=== PATIENT | male | born 1985 | race Caucasian/White ===

== ENCOUNTER 2016-05-11 08:56 | Emergency (ER) | payer SELFPAY ==
--- NOTE | 2016-05-18 13:52 | ER ---
ADMIT: 05/11/2016 RM/LOC: ER [facility] MR#: [id number] [id number] RANDI GAMBOA R [address] [place] [address] Emergency Room Report SEX: M AGE: 30 : 1985 DATE: 05/11/2016 ADDENDUM: CHIEF COMPLAINT: Right 2nd finger flexion weakness. HISTORY OF PRESENT ILLNESS: This is a 30-year-old who said he woke up this morning, he was up for probably only 10 minutes. He went to get on the computer. He noticed when he started to type that his right 2nd finger was a little bit weak. Then he tried to sign his name and noticed that it was difficult to hold the pen with that finger. On examination, there is just a slight weakness. He said it has actually improved throughout the morning. I told him at this time I do not think any imaging is done. I asked him questions about his work or if he has done anything to injure his finger, he cannot remember anything. In fact he said at this time, he is not currently working, has not been doing any increased activity. CLINICAL IMPRESSION: Right 2nd finger flexion weakness. DISPOSITION: Told him to give it a couple days. If it does not improve, to make an appointment with Orthopedic. JULIA Dumont / Bryant Neri MD / gisellel JOB #: [id number] CC: Bryant Neri MD, Attending Physician Addis Gamboa MD, Family Physician
== END 2016-05-11 10:10 | disposition home or self-care (01) ==
LOC: ER 08:56
DX: R29.898 Other symptoms and signs involving the musculoskeletal system (principal); F32.9 Major depressive disorder, single episode, unspecified; F41.9 Anxiety disorder, unspecified; Z79.899 Other long term (current) drug therapy